=== PATIENT | female | born 1955 | race Caucasian/White ===

== ENCOUNTER 2021-09-20 23:08 | Inpatient (IN) ==
[2021-09-20] MEDS ORDERED: *HR* Ticagrelor 90 MG TABLET PO ONE (23:14)
[2021-09-20] MEDS ORDERED: 0.9 % Sodium Chloride 1,000 ML IV ONE ×2 (23:18→23:24)
[2021-09-20] MEDS ORDERED: *HR* Heparin 5,000 UNIT/ML VIAL IVP ONE (23:20)
[2021-09-20] MEDS ORDERED: *HR* Heparin 5,000 UNIT/ML VIAL IVP PRN ×2 (23:20)
[2021-09-20] MEDS ORDERED: 0.9 % Sodium Chloride 1,000 ML ONE (23:25)
[2021-09-20 23:30] LABS: Basophils # 0.1 K/mcL (0.0-0.2); Basophils % 0.7 %; Eosinophils # 0.2 K/mcL (0.0-0.6); Eosinophils % 1.6 %; Hematocrit 43.8 % (35.3-44.9); Hemoglobin 14.4 g/dL (11.5-15.4); Immature Granulocytes % 0.2 % (0-4); Lymphocytes # 3.6 K/mcL (0.6-4.6); Lymphocytes % 29.7 %; Mean Corpuscular HGB Conc 32.9 g/dL (31.6-35.5); Mean Platelet Volume 9.4 fL (9.4-12.4); Monocytes # 1.1 K/mcL (0.0-1.3); Monocytes % 8.8 %; Neutrophils # 7.2 K/mcL (1.6-8.9); Platelet Count 314 K/mcL (140-400); Red Blood Count 5.15 M/mcL (3.82-4.97); Red Cell Distribution Width 12.9 % (11.5-14.5); White Blood Count 12.2 K/mcL (4.3-11.1)
[2021-09-20] MEDS ORDERED: Ondansetron 4 MG/2 ML VIAL ONE (23:34)
[2021-09-20] MEDS ORDERED: Morphine Sulfate 2 MG/ML SYRINGE ONE (23:39)
[2021-09-20 23:40] LABS: Prothrombin Time 10.8 Seconds (9.4-12.1)
[2021-09-20 23:43] LABS: Activated Partial Thrombo Time 27.9 Seconds (26.0-36.0)
[2021-09-20] MEDS ORDERED: *HR* FentaNYL (PF) 100 MCG/2 ML VIAL IVP ONE (23:48)
[2021-09-20] MEDS ORDERED: *HR* FentaNYL (PF) 100 MCG/2 ML VIAL ONE (23:49)
[2021-09-20] MEDS ORDERED: ISOVUE-370 200 ML INFUS..BTL ONE (23:52)
[2021-09-20] MEDS ORDERED: 0.9 % Sodium Chloride 2,000 ML ONE (23:52)
[2021-09-20] MEDS ORDERED: Nitroglycerin 1,000 MCG/5 ML VIAL IV ONE (23:52)
[2021-09-20] MEDS ORDERED: *HR* Heparin 10,000 UNIT/10 ML VIAL ONE (23:52)
[2021-09-20] MEDS ORDERED: Heparin 1,000 UNITS/500 mL 500 ML ONE (23:52)
[2021-09-20 23:58] LABS: Heparin anti-factor XA UFH < 0.04 IU/mL (0.30-0.70)
[2021-09-21 00:01] LABS: Alanine Aminotransferase 21 Units/L (7-52); Albumin 3.9 g/dL (3.5-5.7); Albumin/Globulin Ratio 1.4 (1.1-2.2); Alkaline Phosphatase 85 Units/L (34-104); Aspartate Amino Transferase 25 Units/L (13-39); BUN/Creatinine Ratio 27 (6-26); Bilirubin,Total 0.3 mg/dL (0.3-1.0); Blood Urea Nitrogen 24 mg/dL (8-23); Calcium 8.8 mg/dL (8.6-10.3); Carbon Dioxide 23 mEq/L (23-29); Chloride 108 mEq/L (98-107); Globulin 2.8 g/dL (2.4-3.5); Glucose 166 mg/dL (70-105); Magnesium 2.1 mg/dL (1.6-2.6); Osmolality,Calculated 300 (280-300); Potassium 3.8 mEq/L (3.5-5.1); Sodium 141 mEq/L (136-145); Total Protein 6.7 g/dL (6.4-8.9); Troponin I 0.03 ng/mL (< 0.04); eGFR For African Americans > 60 (> 60); eGFR For Non-African Americans > 60 (> 60)
[2021-09-21] MEDS ORDERED: ISOVUE-370 200 ML INFUS..BTL ONE (00:02)
[2021-09-21] MEDS ORDERED: Tirofiban 12.5 MG/250ML 12.5 MG/250 ML BAG ONE (00:22)
[2021-09-21] MEDS ORDERED: *HR* Heparin 10,000 UNIT/10 ML VIAL ONE (00:22)
[2021-09-21] MEDS: Heparin 25,000UNIT/250ML 1/2NS 25,000 UNIT/250 ML IV.SOLN IVC SCH ×2 (00:24→20:56)
[2021-09-21] MEDS ORDERED: *HR* Atropine Sulfate 1 MG/10 ML SYRINGE IVP ONE (00:27)
[2021-09-21] MEDS ORDERED: *HR* Norepinephrine 4 MG/4 ML VIAL IVC ONE (00:29)
[2021-09-21] MEDS ORDERED: D5% in Water 250 ML ONE (00:30)
[2021-09-21] MEDS ORDERED: 0.9 % Sodium Chloride 1,000 ML ONE (00:58)
[2021-09-21] MEDS ORDERED: Naloxone 0.4 MG/ML INJ IVP PRN (01:01)
[2021-09-21] MEDS ORDERED: Perflutren Lipid Microsphere 1.3 ML in 0.9 % Sodium Chloride 8.7 ML IVP PRN (01:01)
[2021-09-21 05:16] LABS: Basophils % 0.2 %; Hematocrit 36.5 % (35.3-44.9); Immature Granulocytes % 0.4 % (0-4); Lymphocytes # 1.6 K/mcL (0.6-4.6); Lymphocytes % 11.7 %; Mean Corpuscular HGB Conc 33.7 g/dL (31.6-35.5); Mean Corpuscular Hemoglobin 28.3 pg (28.0-33.3); Mean Corpuscular Volume 84.1 fL (83.0-100.0); Mean Platelet Volume 9.5 fL (9.4-12.4); Monocytes # 0.8 K/mcL (0.0-1.3); Monocytes % 5.8 %; Neutrophils # 11.5 K/mcL (1.6-8.9); Platelet Count 277 K/mcL (140-400); Red Blood Count 4.34 M/mcL (3.82-4.97); Segmented Neutrophils % 81.9 %; White Blood Count 14.1 K/mcL (4.3-11.1)
[2021-09-21 05:22] LABS: Hemoglobin 12.3 g/dL (11.5-15.4)
[2021-09-21 05:33] LABS: BUN/Creatinine Ratio 27 (6-26); Blood Urea Nitrogen 20 mg/dL (8-23); Calcium 7.7 mg/dL (8.6-10.3); Carbon Dioxide 21 mEq/L (23-29); Chloride 114 mEq/L (98-107); Chol/HDL Ratio 2.1 (0-4.9); Cholesterol 109 mg/dL (< 200); Glucose 111 mg/dL (70-105); HDL Cholesterol 53 mg/dL (40-59); LDL Cholesterol,Calculated 42 mg/dL (< 100); Osmolality,Calculated 297 (280-300); Potassium 4.1 mEq/L (3.5-5.1); Sodium 142 mEq/L (136-145); Triglycerides 72 mg/dL (< 150); eGFR For African Americans > 60 (> 60); eGFR For Non-African Americans > 60 (> 60)
[2021-09-21] MEDS: Aspirin 81 MG TAB.CHEW PO SCH (08:01)
[2021-09-21] MEDS: *HR* Ticagrelor 90 MG TABLET PO SCH ×2 (08:01→21:25)
[2021-09-21 08:32] LABS: Estimated Average Glucose 126 mg/dl
[2021-09-22] MEDS: Aspirin 81 MG TAB.CHEW PO SCH (07:35)
[2021-09-22] MEDS: *HR* Ticagrelor 90 MG TABLET PO SCH (07:36)
[2021-09-22] MEDS ORDERED: Naloxone 0.4 MG/ML INJ IVP PRN (11:00)
[2021-09-22 12:32] VITALS: TEMP 97.2
[2021-09-22 15:14] VITALS: BP 106/69; O2SAT 95
[2021-09-22 15:20] VITALS: PULSE 80
[2021-09-22] MEDS ORDERED: *HR* Ticagrelor 90 MG TABLET PO SCH (21:00)
[2021-09-23] MEDS ORDERED: Fluticasone Propionate Nasal 50 MCG/SPRAY BOTTLE NS SCH (09:00)
[2021-09-23] MEDS ORDERED: Aspirin 81 MG TAB.CHEW PO SCH (09:00)
== END 2021-09-22 17:49 | disposition home or self-care (01) | DRG 247 ==
LOC: ICNU 23:08 → EMEROOARM 23:08 → ICNU 09-21 00:09
PROVIDERS: ADMIT Internal Medicine; ATTEND Internal Medicine Cardiovascular Disease